=== PATIENT | female | born 1960 | race Caucasian/White ===

== ENCOUNTER 2017-02-01 07:16 | Day surgery (SDC) | payer BC, OTHER ==
[~2017-02-01 07:16] MED LIST: CEFAZOLIN 1 GM/D5W RTU 1 GM/50 ML RTUPB IV PRN
[2017-02-01] MEDS ORDERED: LIDOCAINE 2% INJ-PF (20 MG/ML) 10 ML AMPUL ONE (09:04)
[2017-02-01] MEDS ORDERED: ACETAMINOPHEN 100 ML IV ONE (09:04)
[2017-02-01] MEDS ORDERED: FENTANYL CITRATE INJ/PF 100 MCG/2 ML AMPUL ONE (09:04)
[2017-02-01] MEDS ORDERED: MIDAZOLAM 2 MG/2 ML INJ ONE (09:04)
[2017-02-01] MEDS ORDERED: PROPOFOL INJ 200 MG/20 ML VIAL IV ONE ×2 (09:05→12:27)
[2017-02-01] MEDS ORDERED: LIDOCAINE 2% INJ (20 MG/ML) 20 ML MDV ONE (09:11)
[2017-02-01] MEDS ORDERED: NORMAL SALINE INJ/PF 0.9% 10 ML SDV ONE (09:12)
[2017-02-01] MEDS ORDERED: BUPIVACAINE INJ/PF LIPOSOME/PF 266 MG/20 ML SDV ONE (09:13)
[2017-02-01] MEDS: BUPIVACAINE HCL 0.5 % INJ/PF 30 ML SDV ONE ×2 (09:48→10:08)
[2017-02-01] MEDS: BACITRACIN INJ 50,000 UNIT VIAL ONE ×3 (10:50→11:10)
[2017-02-01] MEDS: POLYMYXIN B SULFATE INJ 500000 UNIT VIAL ONE ×3 (10:50→11:10)
[2017-02-01] MEDS: DEXAMETHASONE SOD PHOSPHATE INJ 4 MG/1 ML VIAL ONE ×2 (12:08)
--- NOTE | 2017-02-01 13:42 | SURGICARE OPERATIVE REPORT E ---
[facility], [place] Operative Report NAME: RAMESH OTTO AGE: 57Y DATE OF SURGERY: 02/01/2017 ROOM: OPERATING SURGEON: WILVER REEDER DPM [facility] NURSE: NIKHIL FRITZ DPM PREOPERATIVE DIAGNOSES: 1. Hallux abductovalgus of the right foot. 2. Hammertoe of the second toe, right foot and long second metatarsal right foot. POSTOPERATIVE DIAGNOSES: 1. Hallux abductovalgus of the right foot. 2. Hammertoe of the second toe, right foot and longus second metatarsal right foot. PROCEDURES: 1. Get bunionectomy with internal screw fixation. 2. David osteotomy with internal screw fixation. 3. Laura osteotomy of the second metatarsal with internal screw fixation. 4. Hammertoe operation of the second toe. DESCRIPTION OF PROCEDURE: On 02/01/2017, patient admitted to [facility], [place] with complaints of painful right foot and was taken to the operating room where following induction of IV sedation and regional local anesthesia, the patient's right foot and leg were prepped and draped in the usual sterile manner. Tourniquet was placed on proximal ankle malleoli. Esmarch was applied. Tourniquet was inflated to 250 mmHg for the purpose of hemostasis. Esmarch was removed. Sterile drape was completed and following procedure performed. Attention was directed to the dorsal aspect of the patient's first metatarsophalangeal joint where a 5 cm curvilinear incision was placed medial to the longus extensor tendon, extended from the distal third of the first metatarsal onto the base of the proximal phalanx, which was deep in the subcutaneous tissue and superficial fascia. All bleeding vessels were clamped, ligated, and Bovie was dissected for hemostasis. The longus extensor tendon was identified, undermined, and retracted laterally for preservation. Attention was paid to the capsular periosteal structures in a similar fashion as the original skin incision. They were freed from the osseous attachments and retracted medially and laterally for preservation. Utilizing a sagittal saw, the hypertrophied medial aspect of the first metatarsal head was then osteotomized removing approximately 2 mm wedge of bone. Get-type osteotomy was then performed at the head of the first metatarsal transposed in a more lateral position and was impacted on the first metatarsal shaft and then temporarily fixated with 0.045 K -wire. Fluoroscopic studies were obtained to verify placement of the wire. At that time, utilizing Arthrex cannulated screw set, a 22 mm 3.0 cannulated screw was then inserted from dorsal distal to plantar proximal for fixation. Again, placement was verified under fluoroscopic studies. Redundancy of bone on the first metatarsal shaft was then osteotomized, flushed with the shaft removing the medial portion of the bone. All sharp osseous digits were rasped smooth. Joint was placed through range of motion and was noted to be adequate at this time; however, it was felt the hallux was somewhat of a valgus position. Lateral release was performed in the first interspace. It was felt the hallux was still in too much of a valgus position. At that time, it was felt David osteotomy be performed. Attention was directed to the base of the proximal phalanx where an David-type osteotomy was performed. The first cut was made perpendicular long axis distal to the base of the proximal phalanx. A second cut was placed just distal to that at approximately 45 degree angle creating approximately 3-4 mm wedge of bone, which was removed from the wound en toto. The lateral cortex was feathered. The osteotomy was closed and temporarily fixated with 0.035 K-wire. A 2.3 cannulated Arthrex screw was then inserted from proximal medial to distal lateral with 20 mm in length. Osteotomy was noted to be stably fixated and good anatomical alignment. The area was flushed with copious amount of sterile antibiotic solution. It was inspected for any soft tissue or osseous debris with none being noted. Bone wax was applied to the exposed medullary surfaces. Capsular periosteal structures were coapted and maintained with simple interrupted suture of 3-0 Vicryl. Attention was then directed to the second metatarsophalangeal joint of the second toe where a 2 cm linear incision was placed overlying the second metatarsophalangeal joint, which was deep in the subcutaneous tissue and superficial fascia all bleeding vessels were clamped, ligated, and bovied as necessary for hemostasis. Capsular and periosteal structures were sharply incised and freed from the osseous attachments, thus bringing in view the dorsal aspect of his second metatarsal head, which was then osteotomized in a dorsal distal to proximal plantar fashion, freeing the head of the second metatarsal, which then retracted approximately 5 mm proximal. It was then fixated with a QuickFix screw 12 mm in length. Fluoroscopic studies were obtained and the head of the second metatarsal was noted to be in good anatomical alignment and stably fixated. At this time, the area was flushed with copious amounts of sterile antibiotic solution and inspected for any soft tissue or osseous debris with none being noted. The capsular and periosteal structures were then coapted and maintained with simple interrupted suture of 3-0 Vicryl. Attention was then directed to the patient's second toe where a 2 cm linear incision was placed over the proximal phalangeal joint, which was deep in the subcutaneous tissue in a superficial fashion. All bleeding vessels were clamped, ligated, and bovied as necessary for hemostasis. The longus extensor tendon was tenotomized in transverse fashion at the level of the proximal phalangeal joint, which was directed distally and proximally for preservation. Utilizing a sagittal saw, the head of the proximal phalanx was osteotomized perpendicular towards the long axis removing approximately 1 cm portion of bone. The plantar plate was then dissected free. The long flexor tendon and short flexor tendons were identified and noted to be intact. The area was flushed with copious amounts of sterile antibiotic solution and inspected for any soft tissue or osseous debris with none being noted. The extensor tendon was then transposed into the space created by the osteotomy and was sutured to the flexor brevis tendon. The remaining longus extensor tendon on the base of the middl phalanx was then sutured proximally to the dorsal aspect of the proximal phalanx and the extensor digitorum longus tendon. The second toe was noted to be in good anatomical alignment and the joint space maintained between the middle phalanx and the cut portion of the proximal phalanx. The skin incision on the second toe was then coapted and maintained with interrupted horizontal mattress suture of 5-0 nylon. Skin incision on the second metatarsophalangeal joint was then coapted and maintained with simple suture of 4-0 Vicryl in a retention fashion and then interrupted horizontal mattress suture of 5-0 nylon was then inserted in the first metatarsophalangeal joint incision. Deep fascial layers were then coapted and maintained with simple interrupted suture of 4-0 Vicryl. The skin incision was then coapted and maintained with running subcuticular suture of 5-0 Vicryl. At that time, 11 mL of Exparel was injected to all the surgical sites. Total of 1 mL of dexamethasone was injected in the first metatarsophalangeal joint. Steri-Strips were applied to the first metatarsophalangeal joint incision. Sterile dressing consisting of Paco silk, 4 x 4s, Speedy, Kerlix, and Coflex applied to the patient's right foot. Tourniquet was properly inflated. Capillary filling time was noted to be instantaneous in all the digits. The patient appeared to tolerate surgery and anesthesia well and was taken to recovery room and further monitored by the anesthesia department. DICTATING PHYSICIAN: WILVER REEDER DPM [id number] PHY#: [id number] ID: [id number] JOB#: [id number] ACCT: [id number] cc:WILVER REEDER DPM > MTDD
--- NOTE | 2017-02-03 13:57 | RADIOLOGY REPORT (SQ) ---
EXAM DESCRIPTION: FOOT RIGHT 2 VIEWS; NO CHG FLUORO COMPLETED DATE/TIME: 02/01/2017 3:52 pm REASON FOR STUDY: BUNIONECTOMY M20.11 HALLUX VALGUS (ACQUIRED), RIGHT FOOT M20.41 OTHER HAMMER TOE (S) (ACQUIRED), RIGHT FOOT COMPARISON: None. FLUOROSCOPY TIME: 2 seconds 7 digital fluoroscopic images saved to PACS. TECHNIQUE: Intra-operative images acquired during surgical procedure to evaluate progress. NUMBER OF IMAGES: 7 digital fluoroscopic images saved to pac's LIMITATIONS: None. FINDINGS: Intra procedural imaging and fluoro during bunion corrective surgery at the 1st metatarsop halangeal joint and 2nd metatarsal head. Please see the operative report for further details IMPRESSION: Intra procedural imaging and fluoro COMMENT: Quality ID [id number]: Final reports for procedures using fluoroscopy that document radiation exp osure indices, or exposure time and number of fluorographic images (if radiation exposure indices are not available) Please consult full operative report of the attending physician for description of the procedure. TECHNICAL DOCUMENTATION: JOB ID: [id number] [employer]- All Rights Reserved
== END 2017-02-01 13:26 | disposition home or self-care (01) ==
LOC: SC 07:16
PROVIDERS: ATTEND Preventive Medicine Undersea and Hyperbaric Medicine
PROC: 0QBN0ZZ Excision of Right Metatarsal, Open Approach (ICD-10-PCS; 2017-02-01)
PROC: 0SQP0ZZ Repair Right Toe Phalangeal Joint, Open Approach (ICD-10-PCS; principal; 2017-02-01 08:15)
DX: M20.11 Hallux valgus (acquired), right foot (principal); M20.41 Other hammer toe(s) (acquired), right foot; I10 Essential (primary) hypertension; Z79.899 Other long term (current) drug therapy
CPT/HCPCS: 73620; 28285; 28296; 28308; C1713 ×3; C1769 ×2; J2250; J3490 ×5; J0690; J1100; J3010; J2704; J0131; C9290; 01480

== ENCOUNTER → 2019-02-27 | Outpatient (CLI) | payer BC | LOC: OD 10:01 | PROVIDERS: ATTEND Otolaryngology | DX: H90.41 Sensorineural hearing loss, unilateral, right ear, with unrestricted hearing on the contralateral side (principal) | CPT/HCPCS: 36415; 82785; 86003 ==